=== PATIENT | male | born 1985 | race Caucasian/White ===

== ENCOUNTER 2017-05-13 19:03 | Emergency (ER) | payer SELFPAY ==
[2017-05-13 19:14] VITALS: BP 154/90
[2017-05-13] MEDS ORDERED: LIDOCAINE 1% INJ-PF (10 MG/ML) 30 ML SDV INJ ONE (19:24)
--- NOTE | 2017-05-13 19:26 | ER Document Report ---
HPI - HPI Patient complains to provider of: finger lac Onset: This evening Onset/Duration: Sudden Quality of pain: Achy Pain Level: 2 Context: Pt states that he was reaching into a portable refrigerator while at work and cut his finger on a rough piece of stainless steel. Patient with laceration to right third finger. Patient states his tetanus immunization is currently up-to- date. Patient without any difficulty and moving his finger. Associated Symptoms: Other - finger lac Exacerbated by: Movement Relieved by: Denies Similar symptoms previously: Yes Recently seen / treated by doctor: No - ROS ROS below otherwise negative: Yes Systems Reviewed and Negative: Yes All other systems reviewed and negative - NEURO Neurology: DENIES: Weakness - GASTROINTESTINAL Gastrointestinal: DENIES: Nausea - MUSCULOSKELETAL Musculoskeletal: REPORTS: Extremity pain - DERM Skin Color: Normal Skin Problems: Laceration Past Medical History - General Information source: Patient - Social History Smoking Status: Current Every Day Smoker Frequency of alcohol use: None Drug Abuse: None 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 IN LAST 30 DAYS: No - HEENT HEENT: Atraumatic, Normocephalic - NECK Neck: Normal Inspection - RESPIRATORY Respiratory: No Respiratory Distress O2 Sat by Pulse Oximetry: 98 - CARDIOVASCULAR Pulses: Normal: Radial - MUSCULOSKELETAL/EXTREMETIES Musculoskeletal/Extremeties: CATRACHITO MOCK - NEURO Level of Consciousness: Awake, Alert, Appropriate Motor/Sensory: No Motor Deficit, No Sensory Deficit - DERM Integumentary: Warm, Dry, Laceration - Irregular 1 cm laceration to the palmar surface of right third finger overlying PIP joint Course - Re-evaluation Re-evalutation: 05/13/17 19:25 The patient has been informed that they may have pre-hypertension or hypertension based on a blood pressure reading in the emergency department. I recommend that patient call the primary care provider listed on their discharge instructions or a physician of their choice by this week to arrange follow-up for further evaluation of possible pre-hypertension or hypertension. - Vital Signs Vital signs: Temp Pulse Resp BP Pulse Ox 97.3 F 92 18 154/90 H 98 08/04/17 19:13 05/13/17 19:13 05/13/17 19:13 05/13/17 19:13 05/13/17 19:13 Discharge - Discharge Clinical Impression: Elevated blood pressure reading Finger laceration Qualifiers: Encounter type: initial encounter Finger: middle finger Damage to nail status: without damage Foreign body presence: without foreign body Laterality: right Qualified Code(s): S61.212A - Laceration without foreign body of right middle finger without damage to nail, initial encounter Condition: Stable Disposition: HOME, SELF-CARE Instructions: Laceration Care ([facility]) Additional Instructions: Return immediately for any new or worsening symptoms Followup with your primary care provider, call tomorrow to make a followup appointment Suture removal in 10 days Forms: Return to Work Referrals: [facility] [Provider Group] - Follow up as needed [facility] [Provider Group] - Follow up as needed
== END 2017-05-13 20:40 | disposition home or self-care (01) ==
LOC: ER 19:03
DX: S61.212A Laceration without foreign body of right middle finger without damage to nail, initial encounter (principal); W26.8XXA Contact with other sharp object(s), not elsewhere classified, initial encounter; Y93.89 Activity, other specified; Y99.0 Civilian activity done for income or pay; R03.0 Elevated blood-pressure reading, without diagnosis of hypertension; F17.200 Nicotine dependence, unspecified, uncomplicated
CPT/HCPCS: 99282

== ENCOUNTER 2018-05-04 16:39 | Emergency (ER) | payer SELFPAY ==
[2018-05-04 16:53] VITALS: BP 150/94
[2018-05-04] MEDS ORDERED: NORMAL SALINE 1000 ML 1,000 ML IV ONE (17:53)
[2018-05-04] MEDS ORDERED: NORMAL SALINE 1000 ML 1,000 ML IV PRN (17:53)
[2018-05-04] MEDS ORDERED: CLINDAMYCIN 900 MG/D5W RTU 900 MG/50 ML RTUPB IV ONE (17:54)
--- NOTE | 2018-05-04 17:56 | ER Document Report ---
ED Medical Screen (RME) - General Chief Complaint: Nausea/Vomiting Stated Complaint: DIZZINESS/NASUEA/VOMITING Time Seen by Provider: 05/04/18 17:48 Notes: 32 years old male who presents today with sepsis-like picture with fever chills shaking throughout the body. He had a right thigh skin lesion he popped it, subsequently developed his symptoms. Has a history of multiple skin lesions and infections. TRAVEL OUTSIDE OF THE [place]. IN LAST 30 DAYS: No - Related Data Allergies/Adverse Reactions: No Known Allergies Allergy (Unverified 05/13/17 19:12) Past Medical History - Social History Chew tobacco use (# tins/day): No Frequency of alcohol use: None Drug Abuse: None Renal/ Medical History: Denies: Hx Peritoneal Dialysis - Immunizations Immunizations up to date: Yes Hx Diphtheria, Pertussis, Tetanus Vaccination: Yes - 4 months ago Physical Exam - Vital signs Vitals: Temp Pulse Resp BP Pulse Ox 98.9 F 88 16 150/94 H 99 05/04/18 16:52 05/04/18 16:52 05/04/18 16:52 05/04/18 16:52 05/04/18 16:52 Course - Vital Signs Vital signs: Temp Pulse Resp BP Pulse Ox 98.9 F 88 16 150/94 H 99 05/04/18 16:52 05/04/18 16:52 05/04/18 16:52 05/04/18 16:52 05/04/18 16:52
--- NOTE | 2018-05-04 19:32 | ER Document Report ---
ED General - General Chief Complaint: Nausea/Vomiting Stated Complaint: DIZZINESS/NASUEA/VOMITING Time Seen by Provider: 05/04/18 17:48 Mode of Arrival: Ambulatory Information source: Patient Notes: Patient is a 32-year-old male who presents with dizziness, nausea and vomiting as as well as an abscess to his left patient reports he has had dizziness for the last 4 days, has felt nauseous for the last 2 and has vomited 6 today. When he patient drained the abscess to his left posterior thigh on his own this morning. Patient denies any fevers but reports that he has had chills. Denies any past medical or surgical history. TRAVEL OUTSIDE OF THE [place] IN LAST 30 DAYS: No - Related Data Allergies/Adverse Reactions: No Known Allergies Allergy (Unverified 05/13/17 19:12) Past Medical History - General Information source: Patient - Social History Smoking Status: Current Every Day Smoker Chew tobacco use (# tins/day): No Frequency of alcohol use: None Drug Abuse: None Family History: Reviewed & Not Pertinent Patient has suicidal ideation: No Patient has homicidal ideation: No - Medical History Medical History: Negative Renal/ Medical History: Denies: Hx Peritoneal Dialysis Surgical Hx: Negative - Immunizations Immunizations up to date: Yes Hx Diphtheria, Pertussis, Tetanus Vaccination: Yes - 4 months ago Review of Systems - Review of Systems Constitutional: See HPI EENT: No symptoms reported Cardiovascular: No symptoms reported Respiratory: No symptoms reported Gastrointestinal: See HPI Genitourinary: No symptoms reported Male Genitourinary: No symptoms reported Musculoskeletal: No symptoms reported Skin: See HPI Hematologic/Lymphatic: No symptoms reported Neurological/Psychological: No symptoms reported Physical Exam - Vital signs Vitals: Temp Pulse Resp BP Pulse Ox 98.9 F 88 16 150/94 H 99 05/04/18 16:52 05/04/18 16:52 05/04/18 16:52 05/04/18 16:52 05/04/18 16:52 - Notes Notes: PHYSICAL EXAMINATION: GENERAL: Well-appearing, well-nourished and in no acute distress. HEAD: Atraumatic, normocephalic. EYES: Pupils equal round and reactive to light, extraocular movements intact, sclera anicteric, conjunctiva are normal. ENT: Nares patent, oropharynx clear without exudates. Moist mucous membranes. NECK: Normal range of motion, supple without lymphadenopathy LUNGS: Breath sounds clear to auscultation bilaterally and equal. No wheezes rales or rhonchi. HEART: Regular rate and rhythm without murmurs ABDOMEN: Soft, nontender, nondistended abdomen. No guarding, no rebound. No masses appreciated. Musculoskeletal: Normal range of motion, no pitting or edema. No cyanosis. NEUROLOGICAL: Cranial nerves grossly intact. Normal speech, normal gait. Normal sensory, motor exams PSYCH: Angry, agitated. SKIN: Warm, Dry, normal turgor, no rashes noted. Erythematous area to left posterior thigh with dark center. 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 Attempted to explain the procedures and that orders need to be placed by provider prior to labs being drawn. Patient proceeds to be very angry demanding that he be taken care of immediately because he has worked all day and is tired. Patient repeatedly asking if he can just leave stating that he does not want to wait any longer. I attempted to calm the patient down and encouraged him to stay for work-up. There is no distress noted, patient's examination is benign other than a erythematous area to the left posterior thigh with patient reports that he drained his abscess earlier. Patient reports that he has a history of having abscesses and that he knows how to drain them himself. Patient's vital signs are within normal limits other than elevated blood pressure 150/94. Patient without fever and without tachycardia or hypoxia. Nurse is at bedside attempting to place IV and draw labs. 05/04/18 19:48 Nurse made one attempt for IV access patient became very angry again stating that he is not staying here to be "poked and prodded" on reporting that he feels fine. I went straight to room and patient had eloped. - Vital Signs Vital signs: Temp Pulse Resp BP Pulse Ox 98.9 F 88 16 150/94 H 99 05/04/18 16:52 05/04/18 16:52 05/04/18 16:52 05/04/18 16:52 05/04/18 16:52 Discharge - Discharge Clinical Impression: Dizziness Condition: Stable Disposition: ELOPED
== END 2018-05-04 19:25 | disposition left against medical advice (07) ==
LOC: ER 16:39
DX: R42 Dizziness and giddiness (principal); R11.2 Nausea with vomiting, unspecified; L02.416 Cutaneous abscess of left lower limb; F17.200 Nicotine dependence, unspecified, uncomplicated
CPT/HCPCS: 82962; 99281

== ENCOUNTER 2018-12-15 08:46 | Emergency (ER) | payer SELFPAY ==
[2018-12-15 08:51] VITALS: BP 166/96
[2018-12-15] MEDS ORDERED: TETRACAINE HCL 0.5% OPH SOLN 4 ML OU ONE (09:19)
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
[2018-12-15] MEDS ORDERED: CLINDAMYCIN HCL 150 MG CAPSULE PO ONE (11:21)
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
== END 2018-12-15 12:28 | disposition home or self-care (01) ==
LOC: ER 08:46
DX: S05.92XA Unspecified injury of left eye and orbit, initial encounter (principal); H53.142 Visual discomfort, left eye; Y04.8XXA Assault by other bodily force, initial encounter; F17.200 Nicotine dependence, unspecified, uncomplicated
CPT/HCPCS: 99283; 70480; J3490

== ENCOUNTER 2019-04-23 12:03 | Emergency (ER) | payer SELFPAY ==
[2019-04-23] MEDS ORDERED: PENICILLIN V POTASSIUM 500 MG TABLET PO ONE (14:54)
[2019-04-23] MEDS ORDERED: IBUPROFEN 800 MG TABLET PO ONE (14:54)
--- NOTE | 2019-04-23 15:11 | ER Document Report ---
HPI - HPI Patient complains to provider of: Toothache Time Seen by Provider: 04/23/19 14:47 Pain Level: 4 Context: Patient is a 33-year-old male presents to the emergency department for generalized left upper and lower tooth pain. Patient states he is unsure of when the last time he went to a dentist. States he is been having pain for months now. States he stopped taking Motrin approximately 2 weeks ago because he "ran out." Patient is denying any medical problems, denies any daily medications, denies any allergies. Past Medical History - General Information source: Patient - Social History Smoking Status: Current Every Day Smoker Family History: Reviewed & Not Pertinent Renal/ Medical History: Denies: Hx Peritoneal Dialysis - Immunizations Immunizations up to date: Yes Hx Diphtheria, Pertussis, Tetanus Vaccination: Yes - 4 months ago Vertical Provider Document - CONSTITUTIONAL Agree With Documented VS: Yes Notes: GENERAL: Alert, interacts well. No acute distress. HEAD: Normocephalic, atraumatic. EYES: Pupils equal, round, and reactive to light. Extraocular movements intact. ENT: Oral mucosa moist, tongue midline. Dentition appears relatively well and intact. Patient is complaining of generalized pain approximately 213, 14, 15, 18, 19, 20. Gums are minorly erythematous but no obvious areas of fluctuance or induration noted. No Ludewig's angina noted. NECK: Full range of motion. Supple. Trachea midline. No lymphadenopathy appreciated LUNGS: Clear to auscultation bilaterally, no wheezes, rales, or rhonchi. No respiratory distress. HEART: Regular rate and rhythm. No murmur ABDOMEN: Soft, non-tender. Non-distended. Bowel sounds present in all 4 quadrants. EXTREMITIES: Moves all 4 extremities spontaneously. No edema, normal radial and dorsalis pedis pulses bilaterally. No cyanosis. BACK: no cervical, thoracic, lumbar midline tenderness. No saddle anesthesia, normal distal neurovascular exam. NEUROLOGICAL: Alert and oriented x3. Normal speech. cranial nerves II through XII grossly intact PSYCH: Normal affect, normal mood. SKIN: Warm, dry, normal turgor. No rashes or lesions noted. - INFECTION CONTROL TRAVEL OUTSIDE OF THE [place] IN LAST 30 DAYS: No Course - Re-evaluation Re-evalutation: Patient's dentition appears relatively well taken care of. No obvious areas of dental fractures or dental caries noted. Gums appear minorly erythematous with no obvious areas of fluctuance or i nduration noted. Patient has no trismus, denies any sore throat or neck pain. Discussed use of antibiotics, [id number] analgesics and following up with the dental clinic. At this time will discharge with return precautions and follow-up recommendations. Verbal discharge instructions given a the bedside and opportunity for questions given. Medication warnings reviewed. Patient is in agreement with this plan and has verbalized understanding of return precautions and the need for primary care follow-up in the next 24-72 hours. This medical record was dictated with voice recognizing software. There may be grammatical, syntax errors that are unintended. - Vital Signs Vital signs: Temp Pulse Resp BP Pulse Ox 98.1 F 71 16 151/100 H 100 04/23/19 12:50 04/23/19 12:50 04/23/19 12:50 04/23/19 12:50 04/23/19 12:50 Discharge - Discharge Clinical Impression: Tooth pain Condition: Stable Disposition: HOME, SELF-CARE Instructions: [facility], Penicillin V K ([facility]), Toothache ([facility]) Additional Instructions: As we discussed you have been seen and treated in the emergency department for potential infection to your tooth. Please make sure you take antibiotics as prescribed. Please also make sure taking [id number] Tylenol and Motrin for generalized pain. Please follow-up with your primary care provider and inevitably a dentist. Phone numbers for [facility] will be provided in this packet. Please return to the emergency room for any other concerns. Prescriptions: Penicillin V Potassium [Penicillin Vk 500 mg Tablet] 500 mg PO BID #20 tablet Forms: Return to Work Referrals: [facility] [Provider Group] - Follow up as needed
[2019-04-23 15:41] VITALS: BP 155/94
== END 2019-04-23 15:42 | disposition home or self-care (01) ==
LOC: ER 12:03
DX: K08.89 Other specified disorders of teeth and supporting structures (principal); F17.200 Nicotine dependence, unspecified, uncomplicated
CPT/HCPCS: 99282